=== PATIENT | male | born 1985 | race Caucasian/White ===

== ENCOUNTER → 2023-10-15 13:13 | Outpatient (REF) | payer OTHER, SELFPAY | LOC: HWRAD 13:13 | PROVIDERS: ATTENDING PHYSICIAN Chiropractor; FAMILY PHYSICIAN Family Medicine | DX: M99.01 Segmental and somatic dysfunction of cervical region (principal); M99.02 Segmental and somatic dysfunction of thoracic region | CPT/HCPCS: 72050; 72110 ==